=== PATIENT | female | born 1950 | race Two or more races ===

== ENCOUNTER 2017-05-11 13:58 | Outpatient (CLI) | payer OTHER | END 2017-05-11 14:27 | disposition home or self-care (01) | LOC: RAD 13:58 | DX: R05 Cough (principal) ==

== ENCOUNTER → 2017-05-11 | Outpatient (CLI) | payer OTHER ==
[~2017-05-11] VITALS: Ht 152.4 cm; Wt 50.8 kg
[~2017-05-11] MED LIST: ALLEGRA ALLERG180 MG PO; ARIPIPRAZOLE5 MG; CELEXA20 MG; CELEXA40 MG; COZAAR50 MG; LEVAQUIN500 MG PO; MEDROL4 MG PO; OSTERA TABLET1 EACH; ZITHROMAX TRI-500 MG PO; ZYRTEC10 MG PO
== END | disposition home or self-care (01) ==
LOC: PPHC 12:53
DX: J06.9 Acute upper respiratory infection, unspecified (principal)

== ENCOUNTER 2017-08-04 18:13 | Emergency (ER) | payer OTHER ==
[~2017-08-04] VITALS: Ht 170.2 cm; Wt 93.9 kg
[2017-08-04] MEDS ORDERED: LOSARTAN POTASS50 MG (18:27)
== END 2017-08-04 22:58 | disposition home or self-care (01) ==
LOC: ER 18:13
DX: S93.69 Other sprain of foot (principal); X50.1XXS Overexertion from prolonged static or awkward postures, sequela

== ENCOUNTER 2018-01-05 11:49 | Outpatient (CLI) | payer OTHER ==
[~2018-01-05 11:49] MED LIST changes: +LOSARTAN POTASS50 MG
== END 2018-01-05 11:55 | disposition home or self-care (01) ==
LOC: RAD 501 11:49
DX: I10 Essential (primary) hypertension (principal); J06.9 Acute upper respiratory infection, unspecified

== ENCOUNTER 2018-08-20 07:21 | Outpatient (CLI) | payer OTHER | END 2018-08-20 07:46 | disposition home or self-care (01) | LOC: TOM 07:21 | DX: J32.0 Chronic maxillary sinusitis (principal) ==

== ENCOUNTER 2018-12-22 11:33 | Outpatient (CLI) | payer OTHER | END 2018-12-22 11:44 | disposition home or self-care (01) | LOC: LAB 11:33 | DX: E11.9 Type 2 diabetes mellitus without complications (principal); E78.89 Other lipoprotein metabolism disorders; G31.84 Mild cognitive impairment of uncertain or unknown etiology; I10 Essential (primary) hypertension; J06.9 Acute upper respiratory infection, unspecified; Z01.810 Encounter for preprocedural cardiovascular examination; A69.20 Lyme disease, unspecified ==

== ENCOUNTER 2018-12-22 13:13 | Outpatient (CLI) | payer OTHER | END 2018-12-22 13:30 | disposition home or self-care (01) | LOC: MAMO-SONO 13:13 | DX: Z12.31 Encounter for screening mammogram for malignant neoplasm of breast (principal); Z87.898 Personal history of other specified conditions; E11.9 Type 2 diabetes mellitus without complications; E78.49 Other hyperlipidemia; I10 Essential (primary) hypertension; Z01.810 Encounter for preprocedural cardiovascular examination; J06.9 Acute upper respiratory infection, unspecified; G31.84 Mild cognitive impairment of uncertain or unknown etiology ==

== ENCOUNTER 2019-04-11 15:31 | Outpatient (CLI) | payer OTHER | END 2019-04-11 15:33 | disposition home or self-care (01) | LOC: SONOGRAMA 15:31 | DX: E04.2 Nontoxic multinodular goiter (principal) ==

== ENCOUNTER 2019-04-29 09:09 | Emergency (ER) | payer OTHER ==
[~2019-04-29] VITALS: Ht 165.1 cm; Wt 88.5 kg
[2019-04-29] MEDS ORDERED: ULTRAM50 MG PO (09:47)
[2019-04-29] MEDS ORDERED: NEURONTIN300 MG PO (09:47)
== END 2019-04-29 11:15 | disposition home or self-care (01) ==
LOC: ER 09:09
DX: B02.8 Zoster with other complications (principal)

== ENCOUNTER → 2019-11-01 | Outpatient (CLI) | payer OTHER ==
[~2019-11-01] MED LIST changes: +NEURONTIN300 MG PO; +ULTRAM50 MG PO
== END | disposition home or self-care (01) ==
LOC: TOM 07:30 → RAD 07:45
PROVIDERS: ATTEND Otolaryngology
DX: J32.4 Chronic pansinusitis (principal); R05 Cough

== ENCOUNTER 2021-03-05 09:17 | Outpatient (CLI) | payer OTHER | END 2021-03-05 09:28 | disposition home or self-care (01) | LOC: RAD 09:17 | PROVIDERS: ATTEND Specialist | DX: I10 Essential (primary) hypertension (principal) ==

== ENCOUNTER 2021-08-01 14:46 | Outpatient (CLI) | payer OTHER | END 2021-08-01 14:57 | disposition home or self-care (01) | LOC: RAD 14:46 | PROVIDERS: ATTEND Specialist | DX: M54.50 Low back pain, unspecified (principal) ==

== ENCOUNTER 2021-12-16 16:01 | Outpatient (CLI) | payer OTHER | END 2021-12-16 16:09 | disposition home or self-care (01) | LOC: RAD 16:01 | PROVIDERS: ATTEND Internal Medicine Rheumatology | DX: M15.8 Other polyosteoarthritis (principal) ==

== ENCOUNTER 2022-03-18 09:44 | Outpatient (CLI) | payer OTHER | END 2022-03-18 09:53 | disposition home or self-care (01) | LOC: SONOGRAMA 09:44 | PROVIDERS: ATTEND Internal Medicine | DX: N39.0 Urinary tract infection, site not specified (principal); R80.9 Proteinuria, unspecified; A69.20 Lyme disease, unspecified; I10 Essential (primary) hypertension; G31.84 Mild cognitive impairment of uncertain or unknown etiology; E78.9 Disorder of lipoprotein metabolism, unspecified; E11.9 Type 2 diabetes mellitus without complications ==

== ENCOUNTER 2022-09-15 08:39 | Outpatient (CLI) | payer OTHER | END 2022-09-15 08:43 | disposition home or self-care (01) | LOC: RAD 08:39 | DX: M25.551 Pain in right hip (principal); M25.552 Pain in left hip ==

== ENCOUNTER 2022-11-07 09:43 | Outpatient (CLI) | payer OTHER | END 2022-11-07 09:50 | disposition home or self-care (01) | LOC: RAD 09:43 | PROVIDERS: ATTEND Orthopaedic Surgery Adult Reconstructive Orthopaedic Surgery | DX: I11.9 Hypertensive heart disease without heart failure (principal) ==

== ENCOUNTER → 2023-01-29 | Outpatient (CLI) | payer OTHER | END | disposition home or self-care (01) | LOC: RAD 15:13 | PROVIDERS: ATTEND Orthopaedic Surgery Adult Reconstructive Orthopaedic Surgery | DX: Z96.641 Presence of right artificial hip joint (principal) ==

== ENCOUNTER 2023-02-03 15:29 | Outpatient (CLI) | payer OTHER | END 2023-02-03 15:40 | disposition home or self-care (01) | LOC: RAD 15:29 | DX: M54.51 Vertebrogenic low back pain (principal) ==

== ENCOUNTER 2023-05-19 12:19 | Outpatient (CLI) | payer OTHER | END 2023-05-19 12:25 | disposition home or self-care (01) | LOC: RAD 12:19 | DX: M51.9 Unspecified thoracic, thoracolumbar and lumbosacral intervertebral disc disorder (principal) ==